=== PATIENT | male | born 1995 | race Two or more races ===

== ENCOUNTER 2018-10-06 11:14 | Emergency (ER) | payer OTHER ==
[~2018-10-06] VITALS: Ht 170.2 cm; Wt 119.3 kg
[~2018-10-06 11:14] MED LIST: ALBU90OI61 INH; Crutch1 EACH MISC; IBUP600 PO; Keflex500 MG PO; LOPE2C PO; MAGIC MOUTHWASH; METPRE4DP PO; PAROEX473 ML MM; PROM25 PO; Pepcid20 MG PO; SULTRIDS PO; Tamiflu75 MG PO; Zofran Odt4 MG SL
[2018-10-06] MEDS ORDERED: BUSP5 (11:23)
[2018-10-06] MEDS ORDERED: VENL25 (11:23)
[2018-10-06] MEDS ORDERED: ALBU90OI61 INH (11:24)
[2018-10-06] MEDS ORDERED: Amoxicillin875 MG PO (12:10)
[2018-10-06] MEDS ORDERED: ALBU90OI INH (12:10)
== END 2018-10-06 12:26 | disposition home or self-care (01) ==
LOC: ER 11:14
DX: J45.901 Unspecified asthma with (acute) exacerbation (principal); H66.43 Suppurative otitis media, unspecified, bilateral; Z87.891 Personal history of nicotine dependence; Z91.048 Other nonmedicinal substance allergy status; Z79.899 Other long term (current) drug therapy
CPT/HCPCS: 99283

== ENCOUNTER → 2022-05-15 | Outpatient (CLI) | payer OTHER ==
[~2022-05-15] MED LIST changes: +ALBU90OI INH; +Amoxicillin875 MG PO; +BUSP5; +VENL25
[2022-05-17 09:10] LABS: CHLAMYDIA BY NAA Negative (Negative); GONOCOCCUS BY NAA Negative (Negative); TRICH VAG BY NAA Negative (Negative)
== END | disposition home or self-care (01) ==
LOC: LAB SHORT 06:00 → LAB 06:00
PROVIDERS: Physician Assistant Medical
DX: R39.15 Urgency of urination (principal)
CPT/HCPCS: 87491; 87591; 87661

== ENCOUNTER 2022-11-18 18:23 | Emergency (ER) | payer OTHER ==
[~2022-11-18] VITALS: Ht 172.7 cm; Wt 124.7 kg
[2022-11-18 18:36] VITALS: BP 146/90
[2022-11-18] MEDS ORDERED: BACTRIM DS TAB1 EAC1 PO (19:41)
== END 2022-11-18 19:45 | disposition home or self-care (01) ==
LOC: ER 18:23
DX: L02.211 Cutaneous abscess of abdominal wall (principal); J45.909 Unspecified asthma, uncomplicated; Z91.048 Other nonmedicinal substance allergy status; Z79.899 Other long term (current) drug therapy
CPT/HCPCS: 99282